=== PATIENT | male | born 1950 | race Caucasian/White ===

== ENCOUNTER 2018-08-13 08:35 | Inpatient (IN) ==
[2018-08-13] MEDS ORDERED: Sod Chloride 0.9% Inj 1,000 ML IV.SIG ONE (09:07)
[2018-08-13] MEDS ORDERED: HYDROmorphone PF Inj 2 MG/ML Vial IV.PUSH ONE (09:10)
[2018-08-13 09:34] LABS: Activated Partial Thrombo Time 26.8 sec (24.3-30.1); INR 1.1 Ratio; Prothrombin Time 11.3 sec (9.8-11.6)
[2018-08-13 09:40] LABS: Alanine Aminotransferase 19 U/L (12-78)
[2018-08-13 09:42] LABS: Albumin 3.4 g/dL (3.4-5.0); Alkaline Phosphatase 84 U/L (45-117); Anion Gap 6 meq/L (5-15); Aspartate Aminotransferase 21 U/L (15-37); Blood Urea Nitrogen 13 mg/dL (7-18); Calcium 9.4 mg/dL (8.5-10.1); Carbon Dioxide 26.8 meq/L (21.0-32.0); Chloride 97 meq/L (98-107); Glomerular Filtration Rate Greater Than 89 mL/min (>89); Glucose,Random 79 mg/dL (74-106); Lipase 34 U/L (73-393); Magnesium 2.1 mg/dL (1.5-2.5); Potassium 6.3 meq/L (3.5-5.1); Sodium 130 meq/L (136-145); Total Protein 7.6 g/dL (6.4-8.2)
--- NOTE | 2018-08-13 09:48 | ED ---
HPI General Chief complaint: Abdominal Pain Stated complaint: Abd pain/diarrehea Time Seen by Provider: 08/13/18 08:49 Source: patient Mode of arrival: ambulatory Limitations: no limitations History of Present Illness HPI narrative: Is a 67-year-old man who presents to the emergency department complaining of abdominal pain. Patient has a complex medical history. About 10 years ago or so he had a pancreatic stone that was unable to be removed any underwent a lateral pancreaticojejunostomy to bypass the stone. This year he was diagnosed with a lung mass in March, was started on an aggressive round of chemotherapy and reportedly developed cold agglutinins, got sick, was in the ICU , and had a ischemia in his right foot requiring amputation. He was started on Xarelto at that time. It is unclear if this was an occlusive process it was related to the vasopressors. He was switched to Keytruda, and Rituxan, which he gets by IV infusion every 3 weeks. 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 He is followed by Dr. Franco in [facility]. He received his most recent infusion last Sunday, 8 days ago. A few days after he started developing severe abdominal pain and watery diarrhea. No blood in his stool. He went to his oncologist who did some blood tests which were unremarkable. He had persistent symptoms and went to the [facility] where they again did blood work and prescribed him Zofran and Bentyl. Pain is worse with any oral intake. He is a little bit of dark urine recently as well. Otherwise had been feeling generally well with reported good response to chemotherapy. Related Data Home Medications Medication Instructions Recorded Confirmed Zofran ODT 4 mg PO Q8H PRN 08/13/18 08/13/18 dapagliflozin [Farxiga] 10 mg PO DAILY 08/13/18 08/13/18 dicyclomine 20 mg PO QID 08/13/18 08/13/18 dicyclomine 20 mg PO QID 08/13/18 08/13/18 folic acid 1 mg PO DAILY 08/13/18 08/13/18 gabapentin 300 mg PO TID PRN 08/13/18 08/13/18 hydromorphone [Dilaudid] 4 mg PO DIRECTED PRN 08/13/18 08/13/18 insulin detemir U-100 [Levemir 13 unit SUBCUT QPM 08/13/18 08/13/18 U-100 Insulin] iron sucrose [Venofer] IV 08/13/18 omeprazole 40 mg PO DAILY 08/13/18 08/13/18 ondansetron HCl [Zofran] 8 mg PO TID PRN 08/13/18 08/13/18 oxycodone-acetaminophen [Percocet] 1 tab PO Q4H PRN 08/13/18 08/13/18 pembrolizumab [Keytruda] IV 08/13/18 rituximab [Rituxan] 08/13/18 rivaroxaban [Xarelto] 20 mg PO DAILY 08/13/18 08/13/18 Allergies Allergy/AdvReac Type Severity Reaction Status Date / Time levofloxacin [From Levaquin] Allergy Dizziness Verified 08/13/18 08:44 metformin Allergy Confusion Verified 08/13/18 08:44 Review of Systems ROS: all other systems reviewed are negative [facility] Medical History Medical History Diabetes (Acute) Leukemia (Acute) Lung cancer (Acute) Surgical History Surgical History Below knee amputation status (Acute) H/O hernia repair (Acute) H/O knee surgery (Acute) History of pancreatic surgery (Acute) Hx of cholecystectomy (Acute) Social History Social History Substance History: No History of Abuse Smoking Status: Former smoker How Often Do You Have a Drink Containing Alcohol: Never Recent Travel in [facility] within the Last 8 Weeks: No Recent Out of Country Travel within the Last 8 Weeks: No Immunization History Tetanus Immunization: <5 Years Exam Narrative Exam Narrative: GENERAL: Well-appearing 67-year-old man, appears well at this time, nontoxic. SKIN: Focused skin assessment warm/dry. HEAD: Atraumatic. Normocephalic. EYES: Pupils equal and round. No scleral icterus. No injection or drainage. ENT: No nasal bleeding or discharge. Mucous membranes pink and moist. NECK: Trachea midline. No JVD. CARDIOVASCULAR: Regular rate and rhythm. No murmur appreciated. RESPIRATORY: No accessory muscle use. Clear to auscultation. Breath sounds equal bilaterally. GASTROINTESTINAL: Abdomen is flat and soft. Mild lower abdominal tenderness. No rebound or guarding. MUSCULOSKELETAL: No obvious deformities. No clubbing. No cyanosis. No edema. NEUROLOGICAL: Awake and alert. No obvious cranial nerve deficits. Motor grossly within normal limits. Normal speech. PSYCHIATRIC: Appropriate mood and affect; insight and judgment normal. Course Initial Documented Vital Signs Temperature 97.7 F 08/13/18 08:39 Pulse Rate 111 H 08/13/18 08:39 Respiratory Rate 20 08/13/18 08:39 Blood Pressure 104/55 L 08/13/18 08:39 Pulse Oximetry 97 08/13/18 08:39 Last Documented Vital Signs Temperature 97.7 F 08/13/18 08:39 Pulse Rate 80 08/13/18 13:00 Respiratory Rate 20 08/13/18 13:00 Blood Pressure 100/59 L 08/13/18 13:00 Pulse Oximetry 99 08/13/18 13:00 Medical Decision Making MDM Narrative Medical decision making narrative: Medical decision making Is a 67-year-old man with active treatment with Keytruda and Rituxan for lung mass. Straight evolving abdominal pain with watery diarrhea. Pain is severe at times, worse with any oral intake. He had some kind of recent vascular insufficiency result and also his leg. This seems to raise the possibility of mesenteric ischemia which is possible by his clinical history. Possibly his vasculitis or thrombophilia. He is on Xarelto but has not been able to take it for a couple days because of his vomiting. He looks overall well. Will check CTA, labs, fluids, reassess. FINAL: Etiology unclear. CTA negative. White count elevated with marked bandemia. This could be related to underlying malignancy. Concern also for infection or colitis. Will check C. difficile, given persistent symptoms, weight loss, dehydration, will recommend observation. I spoke with Dr. Felix, will observe patient. Medical Screen Exam Complete: Yes Emergency Medical Condition: Yes Lab Data Result diagrams: 08/13/18 09:11 08/13/18 09:11 Lab Results 08/13/18 08/13/18 08/13/18 Range/Units 09:11 09:11 09:11 WBC 16.2 H (4.0-11.0) th/mm3 RBC 3.65 L (4.50-5.90) mil/mm3 Hgb 13.0 (13.0-17.0) gm/dL Hct 36.8 L (39.0-51.0) % MCV 100.8 H (80.0-100.0) fL MCH 35.7 H (27.0-34.0) pg MCHC 35.5 (32.0-36.0) % RDW 13.5 (11.6-17.2) % Plt Count 465 H (150-450) th/mm3 MPV 7.5 (7.0-11.0) fL Prelim Diff (Auto) Slide review pending Neut % (Auto) 73.4 H (16.0-70.0) % Lymph % (Auto) 6.6 L (9.0-44.0) % [place] % (Auto) 19.5 H (0.0-8.0) % Eos % (Auto) 0.3 (0.0-4.0) % Baso % (Auto) 0.2 (0.0-2.0) % Neut # (Auto) 11.9 H (1.8-7.7) th/mm3 Lymph # (Auto) 1.1 (1.0-4.8) th/mm3 [place] # (Auto) 3.2 H (0.0-0.9) th/mm3 Eos # (Auto) 0.0 (0.0-0.4) th/mm3 Baso # (Auto) 0.0 (0.0-0.2) th/mm3 WBC Differential Manual diff final Seg Neuts % (Manual) 43 (16-70) % Band Neuts % (Manual) 35 H (0-6) % Lymphocytes % (Manual) 8 L (9-44) % Monocytes % (Manual) 14 H (0-8) % Abs Neuts (Manual) 12.6 H (1.8-7.7) th/mm3 Differential Comment . Toxic Granulation 2+ H (None) Platelet Estimate High H (Normal) Platelet Morphology Normal (Normal) Hematology Comments PT 11.3 (9.8-11.6) sec INR 1.1 Ratio APTT 26.8 (24.3-30.1) sec Sodium (136-145) meq/L Potassium (3.5-5.1) meq/L Chloride (98-107) meq/L Carbon Dioxide (21.0-32.0) meq/L Anion Gap (5-15) meq/L BUN (7-18) mg/dL Creatinine (0.60-1.30) mg/dL Estimated GFR (>89) mL/min Random Glucose (74-106) mg/dL Lactic Acid 1.3 (0.4-2.0) mmol/L Calcium (8.5-10.1) mg/dL Magnesium (1.5-2.5) mg/dL Total Bilirubin (0.2-1.0) mg/dL AST (15-37) U/L ALT (12-78) U/L Alkaline Phosphatase (45-117) U/L Total Protein (6.4-8.2) g/dL Albumin (3.4-5.0) g/dL Lipase (73-393) U/L Urine Color (Yellw/Straw) Urine Clarity (Clear) Urine pH (5.0-8.5) Ur Specific [place] (1.002-1.035) Urine Protein (Neg-Trace) mg/dL Urine Glucose (UA) (Negative) mg/dL Urine Ketones (Negative) mg/dL Urine Occult Blood (Negative) Urine Nitrate (Negative) Urine Bilirubin (Negative) Urine Urobilinogen (Less than 2) mg/dL Ur Leukocyte Esterase (Negative) Urine RBC (0-3) /hpf Urine WBC (0-5) /hpf Urine Mucus (Occasional) /lpf Micro UA Comment Ur Microscopic Review Urine Culture Comments 08/13/18 08/13/18 Range/Units 09:11 09:11 WBC (4.0-11.0) th/mm3 RBC (4.50-5.90) mil/mm3 Hgb (13.0-17.0) gm/dL Hct (39.0-51.0) % MCV (80.0-100.0) fL MCH (27.0-34.0) pg MCHC (32.0-36.0) % RDW (11.6-17.2) % Plt Count (150-450) th/mm3 MPV (7.0-11.0) fL Prelim Diff (Auto) Neut % (Auto) (16.0-70.0) % Lymph % (Auto) (9.0-44.0) % [place] % (Auto) (0.0-8.0) % Eos % (Auto) (0.0-4.0) % Baso % (Auto) (0.0-2.0) % Neut # (Auto) (1.8-7.7) th/mm3 Lymph # (Auto) (1.0-4.8) th/mm3 [place] # (Auto) (0.0-0.9) th/mm3 Eos # (Auto) (0.0-0.4) th/mm3 Baso # (Auto) (0.0-0.2) th/mm3 WBC Differential Seg Neuts % (Manual) (16-70) % Band Neuts % (Manual) (0-6) % Lymphocytes % (Manual) (9-44) % Monocytes % (Manual) (0-8) % Abs Neuts (Manual) (1.8-7.7) th/mm3 Differential Comment Toxic Granulation (None) Platelet Estimate (Normal) Platelet Morphology (Normal) Hematology Comments PT (9.8-11.6) sec INR Ratio APTT (24.3-30.1) sec Sodium 130 L (136-145) meq/L Potassium 6.3 H (3.5-5.1) meq/L Chloride 97 L (98-107) meq/L Carbon Dioxide 26.8 (21.0-32.0) meq/L Anion Gap 6 (5-15) meq/L BUN 13 (7-18) mg/dL Creatinine 0.83 (0.60-1.30) mg/dL Estimated GFR Greater than 89 (>89) mL/min Random Glucose 79 (74-106) mg/dL Lactic Acid (0.4-2.0) mmol/L Calcium 9.4 (8.5-10.1) mg/dL Magnesium 2.1 (1.5-2.5) mg/dL Total Bilirubin 0.9 (0.2-1.0) mg/dL AST 21 (15-37) U/L ALT 19 (12-78) U/L Alkaline Phosphatase 84 (45-117) U/L Total Protein 7.6 (6.4-8.2) g/dL Albumin 3.4 (3.4-5.0) g/dL Lipase 34 L (73-393) U/L Urine Color Yellow (Yellw/Straw) Urine Clarity Clear (Clear) Urine pH 6.0 (5.0-8.5) Ur Specific [place] 1.015 (1.002-1.035) Urine Protein 30 H (Neg-Trace) mg/dL Urine Glucose (UA) Negative (Negative) mg/dL Urine Ketones 20 (Negative) mg/dL Urine Occult Blood Negative (Negative) Urine Nitrate Negative (Negative) Urine Bilirubin Negative (Negative) Urine Urobilinogen Less than 2 (Less than 2) mg/dL Ur Leukocyte Esterase Negative (Negative) Urine RBC Less than 1 (0-3) /hpf Urine WBC Less than 1 (0-5) /hpf Urine Mucus Few H (Occasional) /lpf Micro UA Comment Culture not ind Ur Microscopic Review Not Reportable Urine Culture Comments Culture not ind Imaging Data Radiologist's impression: Abdomen/Pelvis CTA 08/13/18 09:09 CONCLUSION: 1. CT angiogram demonstrates the mesenteric and pelvic vasculature to be widely patent with only minimal atherosclerotic disease. 2. Calcifications throughout the pancreas suggesting previous episodes of pancreatitis. No inflammatory changes are seen. 3. 1.4 cm right adrenal nodule. Please see above discussion.. Discharge Plan Discharge Disposition Patient Disposition: 30 Still Patient Physicians Team ED Provider: Andre Orozco Primary Care Provider: Ravi Enriquez Attending Provider: Dane Felix Discharge Interventions Interventions: Vital Signs Last Done: 08/13/18 13:00 Status ED Status: Admitted Observation Patient
[2018-08-13 10:02] LABS: Bilirubin,Urine Negative (Negative); Clarity,Urine Clear (Clear); Color,Urine Yellow (Yellw/Straw); Glucose,Urine (UA) Negative (Negative); Leukocyte Esterase,Urine Negative (Negative); Mucus,Urine Few /lpf (Occasional); Nitrite,Urine Negative (Negative); Specific Gravity,Urine 1.015 (1.002-1.035)
[2018-08-13 10:09] LABS: Baso % (Auto) 0.2 % (0.0-2.0); Eos % (Auto) 0.3 % (0.0-4.0); Hematocrit 36.8 % (39.0-51.0); Lymph # (Auto) 1.1 th/mm3 (1.0-4.8); Lymph % (Auto) 6.6 % (9.0-44.0); Mean Corpuscular HGB Conc 35.5 % (32.0-36.0); Mean Corpuscular Hemoglobin 35.7 pg (27.0-34.0); Mean Corpuscular Volume 100.8 fL (80.0-100.0); Mean Platelet Volume 7.5 fL (7.0-11.0); Mono # (Auto) 3.2 th/mm3 (0.0-0.9); Mono % (Auto) 19.5 % (0.0-8.0); Neut # (Auto) 11.9 th/mm3 (1.8-7.7); Neut % (Auto) 73.4 % (16.0-70.0); Platelet Count 465 th/mm3 (150-450); Red Blood Count 3.65 mil/mm3 (4.50-5.90); Red Cell Distribution Width 13.5 % (11.6-17.2); White Blood Count 16.2 th/mm3 (4.0-11.0)
[2018-08-13 10:55] LABS: Lymphocytes 8 % (9-44); Monocytes 14 % (0-8); Platelet Morphology Normal (Normal); Toxic Granulation 2+
--- NOTE | 2018-08-13 12:25 | CT ---
EXAM DATE: 08/13/2018 11:48 AM EDT AGE/SEX: 67 years / Male INDICATIONS: Mid abdominal pain for 6 days CLINICAL DATA: This is the patient's initial encounter. Patient reports that signs and symptoms have been present for 4 - 6 days and indicates a pain score of 8/10. MEDICAL/SURGICAL HISTORY: Diabetes. Leukemia. Carcinoma, lung. Cholecystectomy. RADIATION DOSE: 6.34 CTDI (mGy) COMPARISON: No prior exams available for comparison. TECHNIQUE: Volumetric scanning was performed using a multi-row detector CT scanner during bolus infu jhon of 100 ml Omnipaque 350 (iohexol) nonionic water-soluble contrast as a single exam dose. . The data was post processed with a variety of visualization algorithms including full volume maximum int ensity projection, multi-planar sliding thin slab reformation, curved planar reformation, and surface rendering techniques. Using automated exposure control and adjustment of the mA and/or kV according to patient size, radiation dose was kept as low as reasonably achievable to obtain optimal diagnosti c quality images. DICOM format image data is available electronically for review and comparison. FINDINGS: Abdominal aorta: The celiac and SMA origins are widely patent. There is a single renal artery on the left. The left renal is widely patent. There is a main and an accessory on the right. Both are widely patent. The infrarenal aorta is normal in caliber. The [place]ANO is patent. Pelvis: The common iliac, internal iliac and external iliac circulation is widely patent bilaterally. CT source data: The limited portion of lung base visualized demonstrates COPD changes but is otherwis e clear. Examination of the liver demonstrates some gas within the intrahepatic biliary tree suggesti ng previous sphincterotomy. The spleen and kidneys are normal in appearance. Note is made of calcification throughout the pancreas suggesting previous pancreatitis. Note is made of a 1.4 cm nodule within the right adrenal gland. This demonstrates a average density o f 68 Hounsfield units as such is indeterminate. If previous imaging can be made available for compari son assessment for stability could be made. Alternatively if no prior is available MRI imaging for fu rther characterization could be performed. No free air free fluid is identified. The visualized loops of small large bowel are unremarkable. The re is no free fluid within the pelvis. No iliac or inguinal adenopathy is seen. There are degenerativ e changes within the spine. CONCLUSION: 1. CT angiogram demonstrates the mesenteric and pelvic vasculature to be widely patent with only min imal atherosclerotic disease. 2. Calcifications throughout the pancreas suggesting previous episodes of pancreatitis. No inflammat ory changes are seen. 3. 1.4 cm right adrenal nodule. Please see above discussion.. Electronically signed by: Luis Alberto Oro MD 08/13/2018 12:23 PM EDT
[2018-08-13] MEDS ORDERED: Acetaminophen 325 MG Tablet PO PRN (14:20)
[2018-08-13] MEDS ORDERED: Dextrose 50% in Water 50 ML Vial IV.PUSH PRN (14:31)
[2018-08-13] MEDS: Sod Chloride 0.9% Inj 1,000 ML IV.CONT SCH (14:38)
--- NOTE | 2018-08-13 15:09 | P.HPIM ---
History of Present Illness Primary Care Physician: Ravi Enriquez MD Chief Complaint: Abd discomfort, diarrhea and vomiting History of Present Illness: This is a 67-year-old male patient with a past medical history which includes CLL, non-small cell adenocarcinoma of the lung, diabetes mellitus type 2, B12 deficiency, chronic pancreatitis, hypertension no longer on antihypertensives and bilateral PE. Patient was admitted to [facility] 03/18/18 transferred to [facility] discharge 2017 after drainage of pericardial effusion, cardiac tamponade and bilateral pleural effusion as well as bilateral PE at that time patient was diagnosed with non-small cell lung cancer and given 1 cycle of carboplatin and Taxol. Patient was then admitted to [facility] 03/28/18 discharge 2017. 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 . Patient reports he has been doing well was under the care of oncologist Dr. Escalante is being treated with Ketruda and Rituxan Q 3weeks. Until this past 08/07/2018 when patient began to have abdominal cramping/"acid sensation," followed by the need to have diarrhea or vomit. Patient denies bright red blood or coffee-ground emesis. Patient also denies bright red blood or black tarry stools. Patient reports the sensations are worsened by food and he is having liquid bowel movements as often as 2 times per hour. Patient also reports that his symptoms are getting a little better but if not yet gone away therefore he proceeded to the emergency department for further evaluation and treatment. Patient denies fevers but does report hot and cold sensations with occasional diaphoresis. Patient denies chest pain palpitations shortness of breath at this time. PMH: CLL, non-small cell adenocarcinoma of the lung, diabetes mellitus type 2, B12 deficiency, chronic pancreatitis, hypertension no longer on antihypertensives, Bilateral PE, R BKA PSxH: Hernia repair 2004 Gallbladder removed 2009 Pancreaticojejunostomy Thoracentesis March 2018 Pericardial drain March 2018 Right BKA April 15, 2018 Family medical history: Reviewed and noncontributory Social history: lives at home with his retired EtOH use approximately 2 beers per day Denies tobacco use at this time Diagnosis (1) Diarrhea: (2) Abdominal pain: Medications and Allergies Allergies Allergy/AdvReac Type Severity Reaction Status Date / Time levofloxacin [From Levaquin] Allergy Dizziness Verified 08/13/18 08:44 metformin Allergy Confusion Verified 08/13/18 08:44 Home Medications Medication Instructions Recorded Confirmed Type Zofran ODT 4 mg PO Q8H PRN 08/13/18 08/13/18 History dapagliflozin [Farxiga] 10 mg PO DAILY 08/13/18 08/13/18 History dicyclomine 20 mg PO QID 08/13/18 08/13/18 History dicyclomine 20 mg PO QID 08/13/18 08/13/18 History folic acid 1 mg PO DAILY 08/13/18 08/13/18 History gabapentin 300 mg PO TID PRN 08/13/18 08/13/18 History hydromorphone [Dilaudid] 4 mg PO DIRECTED PRN 08/13/18 08/13/18 History insulin detemir U-100 [Levemir 13 unit SUBCUT QPM 08/13/18 08/13/18 History U-100 Insulin] iron sucrose [Venofer] IV 08/13/18 History omeprazole 40 mg PO DAILY 08/13/18 08/13/18 History ondansetron HCl [Zofran] 8 mg PO TID PRN 08/13/18 08/13/18 History oxycodone-acetaminophen [Percocet] 1 tab PO Q4H PRN 08/13/18 08/13/18 History pembrolizumab [Keytruda] IV 08/13/18 History rituximab [Rituxan] 08/13/18 History rivaroxaban [Xarelto] 20 mg PO DAILY 08/13/18 08/13/18 History Active Medications: Active Medications Acetaminophen (Tylenol) 650 mg PO Q4H PRN PRN Reason: Temp > 100.4 Dextrose (D50w Vial) 50 ml IV.PUSH UNSCH PRN PRN Reason: PER HYPOGLYCEMIA PROTOCOL Glucagon (Glucagon Inj) 1 mg OTHER PRN PRN PRN Reason: for Hypoglycemia Protocol Sodium Chloride (Ns Inj) 1,000 mls @ 100 mls/hr IV.CONT .Q10H ROMERO Last Admin: 08/13/18 14:38 Dose: 100 mls/hr Insulin Aspart (Novolog Insulin Correctional Sugar Inj) 0 unit SQ ACHS ROMERO; Protocol Ondansetron HCl (Zofran Inj) 4 mg IV.PUSH Q6H PRN PRN Reason: NAUSEA OR VOMITING Sodium Chloride (Ns Flush) 2 ml IV.FLUSH PRN PRN PRN Reason: FLUSH AFTER USING IV ACCESS Physical Exam Vital signs: Last Vital Signs Temp 97.7 F 08/13/18 08:39 Pulse 80 08/13/18 13:00 Resp 20 08/13/18 13:00 BP 100/59 L 08/13/18 13:00 Pulse Ox 99 08/13/18 13:00 Narrative: GENERAL: This is a well-nourished, well-developed patient, in no apparent distress. CARDIOVASCULAR: Regular rate and rhythm RESPIRATORY: Clear to auscultation. Breath sounds equal bilaterally. GASTROINTESTINAL: Abdomen soft, non-tender, nondistended. Normal active bowel sounds MUSCULOSKELETAL: R BKA NEURO: Alert & Oriented x4 to person, place, time, situation. Moves all ext x4 Results Labs CBC & Chem 7: 08/13/18 09:11 08/13/18 09:11 Caprini VTE Risk Assessment Caprini VTE Risk Assessment: Moderate/High Risk (score >= 2) Caprini Risk Assessment Model: Point Value = 1 Point Value = 2 Point Value = 3 Point Value = 5 Age 41-60 Minor surgery BMI > 25 kg/m2 Swollen legs Varicose veins or History of unexplained or recurrent spontaneous Oral contraceptives or hormone replacement Sepsis (< 1 month) Serious lung disease, including pneumonia (< 1 month) Abnormal pulmonary function Acute myocardial infarction Congestive heart failure (< 1 month) History of inflammatory bowel disease Medical patient at bed rest Age 61-74 Arthroscopic surgery Major open surgery (> 45 min) Laparoscopic surgery (> 45 min) Malignancy Confined to bed (> 72 hours) Immobilizing plaster cast Central venous access Age >= 75 History of VTE Family history of VTE Factor V Leiden Prothrombin [id number] Lupus anticoagulant Anticardiolipin antibodies Elevated serum homocysteine Heparin-induced thrombocytopenia Other congenital or acquired thrombophilia Stroke (< 1 month) Elective arthroplasty Hip, pelvis, or leg fracture Acute spinal cord injury (< 1 month) Prophylaxis Regimen: Total Risk Factor Score Risk Level Prophylaxis Regimen 0-1 Low Early ambulation 2 Moderate Order ONE of the following: *Sequential Compression Device (SCD) *Heparin 5000 units SQ BID 3-4 Higher Order ONE of the following medications: *Heparin 5000 units SQ TID *Enoxaparin/Lovenox 40 mg SQ daily (WT < 150 kg, CrCl > 30 mL/min) *Enoxaparin/Lovenox 30 mg SQ daily (WT < 150 kg, CrCl > 10-29 mL/min) *Enoxaparin/Lovenox 30 mg SQ BID (WT < 150 kg, CrCl > 30 mL/min) AND/OR *Sequential Compression Device (SCD) 5 or more Highest Order ONE of the following medications: *Heparin 5000 units SQ TID (Preferred with Epidurals) *Enoxaparin/Lovenox 40 mg SQ daily (WT < 150 kg, CrCl > 30 mL/min) *Enoxaparin/Lovenox 30 mg SQ daily (WT < 150 kg, CrCl > 10-29 mL/min) *Enoxaparin/Lovenox 30 mg SQ BID (WT < 150 kg, CrCl > 30 mL/min) AND *Sequential Compression Device (SCD) Assessment and Plan Assessment (1) Diarrhea: Code(s): R19.7 - Diarrhea, unspecified Status: Acute (2) Abdominal pain: Code(s): R10.9 - Unspecified abdominal pain Status: Acute Plan This is a 67-year-old male patient with a past medical history which includes CLL, non-small cell adenocarcinoma of the lung, diabetes mellitus type 2, B12 deficiency, chronic pancreatitis, hypertension no longer on antihypertensives and bilateral PE. Patient was admitted to [facility] 03/18/18 transferred to [facility] discharge 03/24/2018 after drainage of pericardial effusion, cardiac tamponade and bilateral pleural effusion as well as bilateral PE at that time patient was diagnosed with non-small cell lung cancer and given 1 cycle of carboplatin and Taxol. Patient was then admitted to [facility] 03/28/18 discharge 04/19/2018. 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 . Patient reports he has been doing well was under the care of oncologist Dr. Escalante is being treated with Ketruda and Rituxan Q 3weeks. Until this past 08/07/2018 when patient began to have abdominal cramping/"acid sensation," followed by the need to have diarrhea or vomit. Patient reports the sensations are worsened by food and he is having liquid bowel movements as often as 2 times per hour. Patient also reports that his symptoms are getting a little better but if not yet gone away therefore he proceeded to the emergency department for further evaluation and treatment. Abd pain N/V/D Normal saline at 100 cc/h Stool studies requested and pending Check stool for C. difficile CT abdomen pelvis reviewed and reveals Abdomen/Pelvis CTA 08/13/18 09:[address] angiogram demonstrates the mesenteric and pelvic vasculature to be widely patent with only minimal atherosclerotic disease. 2. Calcifications throughout the pancreas suggesting previous episodes of pancreatitis. No inflammatory changes are seen. 3. 1.4 cm right adrenal nodule. Please see above discussion. Clear liquid diet Zofran as needed Supportive care Recheck CBC BMP in a.m. CLL Non-small cell adenocarcinoma of the lung Follows with Dr. Escalante outpatient Patient at home takes Dilaudid 4 mg p.o. daily Dilaudid 0.5 mg IV Q4H while patient unable to take p.o. Diabetes mellitus type 2 Hold home Levemir 13 units SQ daily and Farxiga 10 mg PO daily Accu-Cheks AC at bedtime with sliding scale insulin coverage Hypertension no longer on antihypertensives Monitor Bilateral pulmonary emboli March 2018 Hold patient's home Xarelto, may need GI procedure DVT prophylaxis with L SCD Hold patient's home Xarelto may need GI procedure
[2018-08-13] MEDS ORDERED: Gabapentin 300 MG Capsule PO PRN (16:00)
[2018-08-13] MEDS: HYDROmorphone PF Inj 1 MG/ML Ampul IV.PUSH PRN ×2 (16:15→21:16)
[2018-08-13] MEDS: Insulin NovoLOG Aspart Correctional Sugar Inj SQ SCH ×2 (17:40→21:04)
[2018-08-14] MEDS: Sod Chloride 0.9% Inj 1,000 ML IV.CONT SCH ×3 (04:00→21:25)
[2018-08-14] MEDS: HYDROmorphone PF Inj 1 MG/ML Ampul IV.PUSH PRN (05:06)
[2018-08-14] MEDS: Insulin NovoLOG Aspart Correctional Sugar Inj SQ SCH ×4 (08:06→21:26)
[2018-08-14] MEDS: Folic Acid 1 MG Tablet PO SCH (08:12)
[2018-08-14 08:22] LABS: Baso % (Auto) 0.2 % (0.0-2.0); Eos % (Auto) 0.6 % (0.0-4.0); Hematocrit 42.2 % (39.0-51.0); Hemoglobin 14.3 gm/dL (13.0-17.0); Lymph # (Auto) 0.5 th/mm3 (1.0-4.8); Lymph % (Auto) 6.8 % (9.0-44.0); Mean Corpuscular HGB Conc 33.9 % (32.0-36.0); Mean Corpuscular Hemoglobin 32.4 pg (27.0-34.0); Mean Corpuscular Volume 95.6 fL (80.0-100.0); Mean Platelet Volume 6.9 fL (7.0-11.0); Mono # (Auto) 1.1 th/mm3 (0.0-0.9); Mono % (Auto) 15.1 % (0.0-8.0); Neut # (Auto) 5.6 th/mm3 (1.8-7.7); Neut % (Auto) 77.3 % (16.0-70.0); Platelet Count 297 th/mm3 (150-450); Red Blood Count 4.42 mil/mm3 (4.50-5.90); Red Cell Distribution Width 13.5 % (11.6-17.2); White Blood Count 7.3 th/mm3 (4.0-11.0)
[2018-08-14 08:22] LABS: Alanine Aminotransferase 16 U/L (12-78); Albumin 2.6 g/dL (3.4-5.0); Alkaline Phosphatase 63 U/L (45-117); Anion Gap 6 meq/L (5-15); Aspartate Aminotransferase 25 U/L (15-37); Blood Urea Nitrogen 7 mg/dL (7-18); Calcium 8.4 mg/dL (8.5-10.1); Carbon Dioxide 26.1 meq/L (21.0-32.0); Chloride 104 meq/L (98-107); Glomerular Filtration Rate Greater Than 89 mL/min (>89); Glucose,Random 92 mg/dL (74-106); Sodium 136 meq/L (136-145); Total Protein 5.9 g/dL (6.4-8.2)
[2018-08-14 08:31] LABS: Potassium 5.6 meq/L (3.5-5.1)
--- NOTE | 2018-08-14 10:37 | P.CONGI ---
History of Present Illness Consult date: 08/14/18 Consult reason: Nausea vomiting diarrhea with abdominal pain after meals Chief complaint: Abdominal pain, leukocytosis, eval c-diff History of Present Illness: This is a 67-year-old male who presented to the hospital on 08/13/2018 with symptoms of nausea and vomiting, diarrhea and mid abdominal pain radiating into the right upper quadrant. . Onset of symptoms is been approximately 7 days with diarrhea stools as much as twice an hour for the first 2 days but now symptoms have relieved to approximately 4 stools a day consistency is brown, watery but no obvious bleeding. Patient also noted some increase in his dyspepsia symptoms during the initial state of nausea vomiting , aggregating factor worse after eating, no relieving factors no relief from Tums. Patient has a history of taking Xarelto but has not had any medication since admission. Patient notes significant history of chronic pancreatitis and previous EtOH with failed ERCP requiring surgical bypass of the common bile duct in 1999. Patient currently denies any alcohol use and is currently being treated for CLL , non-small cell adenocarcinoma of the lung diagnosed in March 2018. Patient did see his oncologist approximately a week ago. Patient does note decreased appetite and weight loss approximately 10 pounds over the past week. Labs reviewed showing hemoglobin 14.3, initial leukocytosis with WBC count 16.2 now 7.3, PT/INR 1.1, lipase level 34, and bilirubin LFTs are normal. Abdomen pelvis CTA showed no inflammatory pancreas, vessels are patent. Gastroenterology was consulted to assist with patient's GI symptoms and plan of care. <Nataliia Llamas - Last Filed: 08/14/18 10:51> Review of Systems All other systems reviewed negative except as stated in HPI <Nataliia Llamas - Last Filed: 08/14/18 10:51> PMFSH - History History Provided By: Patient - Medical History Medical History: Medical History (Last Reviewed 08/14/18 @ 07:59 by Martha Beard) Diabetes History of chemotherapy Leukemia Lung cancer - Surgical History Surgical History: Surgical History (Last Reviewed 08/14/18 @ 07:59 by Martha Beard) Below knee amputation status H/O hernia repair H/O knee surgery History of pancreatic surgery Hx of cholecystectomy - Tobacco History Smoking Status: Former smoker - Alcohol History How Often Do You Have a Drink Containing Alcohol: Never - Substance Use History Substance History: No History of Abuse - Travel History Recent Travel in the [place] Within the Last 8 Weeks: No Recent Travel Out of the Country Within the Last 8 Weeks: No - Immunization History Tetanus Immunization: <5 Years <Nataliia Llamas - Last Filed: 08/14/18 10:51> - Medical History Medical History: Medical History (Last Reviewed 08/14/18 @ 07:59 by Martha Beard) Diabetes History of chemotherapy Leukemia Lung cancer - Surgical History Surgical History: Surgical History (Last Reviewed 08/14/18 @ 07:59 by Martha Beard) Below knee amputation status H/O hernia repair H/O knee surgery History of pancreatic surgery Hx of cholecystectomy <Akhil Callaway - Last Filed: 08/14/18 15:27> Medications and Allergies Active Medications: Active Medications Acetaminophen (Tylenol) 650 mg PO Q4H PRN PRN Reason: Temp > 100.4 Dextrose (D50w Vial) 50 ml IV.PUSH UNSCH PRN PRN Reason: PER HYPOGLYCEMIA PROTOCOL Folic Acid (Folic Acid) 1 mg PO DAILY [facility] Last Admin: 08/14/18 08:12 Dose: 1 mg Gabapentin (Neurontin) 300 mg PO TID PRN PRN Reason: nerve pain Glucagon (Glucagon Inj) 1 mg OTHER PRN PRN PRN Reason: for Hypoglycemia Protocol Hydromorphone HCl (Dilaudid Pf Inj) 0.5 mg IV.PUSH Q4H PRN PRN Reason: pain 1-10. Last Admin: 08/14/18 05:06 Dose: 0.5 mg Sodium Chloride (Ns Inj) 1,000 mls @ 100 mls/hr IV.CONT .Q10H [facility] Last Admin: 08/14/18 04:00 Dose: 100 mls/hr Insulin Aspart (Novolog Insulin Correctional Sugar Inj) 0 unit SQ ACHS [facility]; Protocol Last Admin: 08/14/18 08:06 Dose: Not Given Ondansetron HCl (Zofran Inj) 4 mg IV.PUSH Q6H PRN PRN Reason: NAUSEA OR VOMITING Sodium Chloride (Ns Flush) 2 ml IV.FLUSH PRN PRN PRN Reason: FLUSH AFTER USING IV ACCESS <Nataliia Llamas - Last Filed: 08/14/18 10:51> Active Medications: Active Medications Acetaminophen (Tylenol) 650 mg PO Q4H PRN PRN Reason: Temp > 100.4 Dextrose (D50w Vial) 50 ml IV.PUSH UNSCH PRN PRN Reason: PER HYPOGLYCEMIA PROTOCOL Folic Acid (Folic Acid) 1 mg PO DAILY [facility] Last Admin: 08/14/18 08:12 Dose: 1 mg Gabapentin (Neurontin) 300 mg PO TID PRN PRN Reason: nerve pain Glucagon (Glucagon Inj) 1 mg OTHER PRN PRN PRN Reason: for Hypoglycemia Protocol Sodium Chloride (Ns Inj) 1,000 mls @ 100 mls/hr IV.CONT .Q10H [facility] Last Admin: 08/14/18 15:25 Dose: 100 mls/hr Insulin Aspart (Novolog Insulin Correctional Sugar Inj) 0 unit SQ ACHS [facility]; Protocol Last Admin: 08/14/18 11:39 Dose: 4 unit Morphine Sulfate (Morphine Inj) 2 mg IV.PUSH Q4H PRN PRN Reason: PAIN SCALE 1 TO 10 Last Admin: 08/14/18 11:39 Dose: 2 mg Ondansetron HCl (Zofran Inj) 4 mg IV.PUSH Q6H PRN PRN Reason: NAUSEA OR VOMITING Last Admin: 08/14/18 11:48 Dose: 4 mg Pantoprazole Sodium (Protonix Inj) 40 mg IV.CONT Q24H [facility] Last Admin: 08/14/18 15:25 Dose: 40 mg Sodium Chloride (Ns Flush) 2 ml IV.FLUSH BID [facility] Sodium Chloride (Ns Flush) 2 ml IV.FLUSH PRN PRN PRN Reason: FLUSH AFTER USING IV ACCESS <Akhil Callaway - Last Filed: 08/14/18 15:27> Allergies Allergy/AdvReac Type Severity Reaction Status Date / Time levofloxacin [From Levaquin] Allergy Dizziness Verified 08/13/18 08:44 metformin Allergy Confusion Verified 08/13/18 08:44 Home Medications Medication Instructions Recorded Confirmed Type Zofran ODT 4 mg PO Q8H PRN 08/13/18 08/13/18 History dapagliflozin [Farxiga] 10 mg PO DAILY 08/13/18 08/13/18 History dicyclomine 20 mg PO QID 08/13/18 08/13/18 History dicyclomine 20 mg PO QID 08/13/18 08/13/18 History folic acid 1 mg PO DAILY 08/13/18 08/13/18 History gabapentin 300 mg PO TID PRN 08/13/18 08/13/18 History hydromorphone [Dilaudid] 4 mg PO DIRECTED PRN 08/13/18 08/13/18 History insulin detemir U-100 [Levemir 13 unit SUBCUT QPM 08/13/18 08/13/18 History U-100 Insulin] iron sucrose [Venofer] IV 08/13/18 History omeprazole 40 mg PO DAILY 08/13/18 08/13/18 History ondansetron HCl [Zofran] 8 mg PO TID PRN 08/13/18 08/13/18 History oxycodone-acetaminophen [Percocet] 1 tab PO Q4H PRN 08/13/18 08/13/18 History pembrolizumab [Keytruda] IV 08/13/18 History rituximab [Rituxan] 08/13/18 History rivaroxaban [Xarelto] 20 mg PO DAILY 08/13/18 08/13/18 History Exam Vital signs: Vital Signs 08/13/18 13:00 08/13/18 15:52 08/13/18 20:00 Temperature 97.5 F L Pulse Rate 80 89 82 Respiratory Rate 20 18 18 Blood Pressure 100/59 L 117/62 107/61 Pulse Oximetry 99 100 08/14/18 00:00 08/14/18 08:00 Temperature 97.8 F 98.0 F Pulse Rate 76 73 Respiratory Rate 18 17 Blood Pressure 105/55 L 98/51 L Pulse Oximetry 99 97 Intake & Output 08/13/18 08/14/18 08/14/18 18:59 06:59 18:59 Intake Total 1000 / 1000 1600 / 1600 Balance 1000 / 1000 1600 / 1600 Weight 58.967 kg 59.9 kg Intake: IV 1000 / 1000 1000 / 1000 NS Inj 1,000 ML @ 100 mls/hr IV 1000 / 1000 .CONT .Q10H [facility] Rx#:[id number] NS Inj 1,000 ML @ Wide Open IV. 1000 / 1000 SIG BOLUS ONE Rx#:[id number] Oral 600 / 600 Other: # Voids 4 Date of Last Bowel Movement 08/13/18 # Bowel Movements 2 - Constitutional mild distress, cachectic, cooperative - Routine HEENT Exam ENT: Present: mucous membranes dry - Routine Respiratory Exam Present: accessory muscle use (No obvious shortness of breath) - Routine Cardiovascular Exam Present: S1, S2 - Routine Abdominal Exam Present: soft, normoactive bowel sounds, tenderness (Minimal discomfort mid and right upper quadrant, improved) <Nataliia Llamas - Last Filed: 08/14/18 10:51> Vital signs: Vital Signs 08/13/18 15:52 08/13/18 20:00 08/14/18 00:00 Temperature 97.5 F L 97.8 F Pulse Rate 89 82 76 Respiratory Rate 18 18 18 Blood Pressure 117/62 107/61 105/55 L Pulse Oximetry 100 99 08/14/18 08:00 08/14/18 12:00 Temperature 98.0 F 97.9 F Pulse Rate 73 75 Respiratory Rate 17 17 Blood Pressure 98/51 L 100/57 L Pulse Oximetry 97 99 Intake & Output 08/13/18 08/14/18 08/14/18 18:59 06:59 18:59 Intake Total 1000 / 1000 1600 / 1600 1000 / 1000 Balance 1000 / 1000 1600 / 1600 1000 / 1000 Weight 58.967 kg 59.9 kg Intake: IV 1000 / 1000 1000 / 1000 1000 / 1000 NS Inj 1,000 ML @ 100 mls/hr IV 1000 / 1000 1000 / 1000 .CONT .Q10H [facility] Rx#:[id number] NS Inj 1,000 ML @ Wide Open IV. 1000 / 1000 SIG BOLUS ONE Rx#:[id number] Oral 600 / 600 Other: # Voids 4 Date of Last Bowel Movement 08/13/18 # Bowel Movements 2 <Akhil Callaway - Last Filed: 08/14/18 15:27> Results - Labs CBC & Chem 7: 08/14/18 06:14 08/14/18 06:16 Labs: Laboratory Results - last 24 hr 08/13/18 08/13/18 08/13/18 09:11 15:45 17:30 WBC RBC Hgb Hct MCV MCH MCHC RDW Plt Count MPV Neut % (Auto) Lymph % (Auto) [place] % (Auto) Eos % (Auto) Baso % (Auto) Neut # (Auto) Lymph # (Auto) [place] # (Auto) Eos # (Auto) Baso # (Auto) WBC Differential Manual diff final Seg Neuts % (Manual) 43 Band Neuts % (Manual) 35 H Lymphocytes % (Manual) 8 L Monocytes % (Manual) 14 H Abs Neuts (Manual) 12.6 H Differential Comment Toxic Granulation 2+ H Platelet Estimate High H Platelet Morphology Normal Hematology Comments Sodium Potassium Chloride Carbon Dioxide Anion Gap BUN Creatinine Estimated GFR POC Glucose 82 Random Glucose Calcium Total Bilirubin AST ALT Alkaline Phosphatase Total Protein Albumin Stl C.difficile DNA Amp Negative St C. diff Tox Epid 027 Negative 08/13/18 08/14/18 08/14/18 21:03 06:14 06:16 WBC 7.3 D RBC 4.42 L Hgb 14.3 Hct 42.2 MCV 95.6 D MCH 32.4 MCHC 33.9 RDW 13.5 Plt Count 297 D MPV 6.9 L Neut % (Auto) 77.3 H Lymph % (Auto) 6.8 L [place] % (Auto) 15.1 H Eos % (Auto) 0.6 Baso % (Auto) 0.2 Neut # (Auto) 5.6 Lymph # (Auto) 0.5 L [place] # (Auto) 1.1 H Eos # (Auto) 0.0 Baso # (Auto) 0.0 WBC Differential . Seg Neuts % (Manual) Band Neuts % (Manual) Lymphocytes % (Manual) Monocytes % (Manual) Abs Neuts (Manual) Differential Comment Auto diff final Toxic Granulation Platelet Estimate Platelet Morphology Hematology Comments Sodium 136 Potassium 5.6 H Chloride 104 Carbon Dioxide 26.1 Anion Gap 6 BUN 7 Creatinine 0.60 Estimated GFR Greater than 89 POC Glucose 139 H Random Glucose 92 Calcium 8.4 L D Total Bilirubin 0.5 AST 25 ALT 16 Alkaline Phosphatase 63 Total Protein 5.9 L D Albumin 2.6 L D Stl C.difficile DNA Amp St C. diff Tox Epid 027 08/14/18 08:01 WBC RBC Hgb Hct MCV MCH MCHC RDW Plt Count MPV Neut % (Auto) Lymph % (Auto) [place] % (Auto) Eos % (Auto) Baso % (Auto) Neut # (Auto) Lymph # (Auto) [place] # (Auto) Eos # (Auto) Baso # (Auto) WBC Differential Seg Neuts % (Manual) Band Neuts % (Manual) Lymphocytes % (Manual) Monocytes % (Manual) Abs Neuts (Manual) Differential Comment Toxic Granulation Platelet Estimate Platelet Morphology Hematology Comments Sodium Potassium Chloride Carbon Dioxide Anion Gap BUN Creatinine Estimated GFR POC Glucose 135 H Random Glucose Calcium Total Bilirubin AST ALT Alkaline Phosphatase Total Protein Albumin Stl C.difficile DNA Amp St C. diff Tox Epid 027 - Imaging Impressions Abdomen/Pelvis CTA 08/13/18 09:09 CONCLUSION: 1. CT angiogram demonstrates the mesenteric and pelvic vasculature to be widely patent with only minimal atherosclerotic disease. 2. Calcifications throughout the pancreas suggesting previous episodes of pancreatitis. No inflammatory changes are seen. 3. 1.4 cm right adrenal nodule. Please see above discussion.. <Nataliia Llamas - Last Filed: 08/14/18 10:51> - Labs CBC & Chem 7: 08/14/18 06:14 08/14/18 06:16 Labs: Laboratory Results - last 24 hr 08/13/18 08/13/18 08/13/18 15:45 17:30 21:03 WBC RBC Hgb Hct MCV MCH MCHC RDW Plt Count MPV Neut % (Auto) Lymph % (Auto) [place] % (Auto) Eos % (Auto) Baso % (Auto) Neut # (Auto) Lymph # (Auto) [place] # (Auto) Eos # (Auto) Baso # (Auto) WBC Differential Differential Comment Hematology Comments Sodium Potassium Chloride Carbon Dioxide Anion Gap BUN Creatinine Estimated GFR POC Glucose 82 139 H Random Glucose Calcium Total Bilirubin AST ALT Alkaline Phosphatase Total Protein Albumin Stl C.difficile DNA Amp Negative St C. diff Tox Epid 027 Negative 08/14/18 08/14/18 08/14/18 06:14 06:16 08:01 WBC 7.3 D RBC 4.42 L Hgb 14.3 Hct 42.2 MCV 95.6 D MCH 32.4 MCHC 33.9 RDW 13.5 Plt Count 297 D MPV 6.9 L Neut % (Auto) 77.3 H Lymph % (Auto) 6.8 L [place] % (Auto) 15.1 H Eos % (Auto) 0.6 Baso % (Auto) 0.2 Neut # (Auto) 5.6 Lymph # (Auto) 0.5 L [place] # (Auto) 1.1 H Eos # (Auto) 0.0 Baso # (Auto) 0.0 WBC Differential . Differential Comment Auto diff final Hematology Comments Sodium 136 Potassium 5.6 H Chloride 104 Carbon Dioxide 26.1 Anion Gap 6 BUN 7 Creatinine 0.60 Estimated GFR Greater than 89 POC Glucose 135 H Random Glucose 92 Calcium 8.4 L D Total Bilirubin 0.5 AST 25 ALT 16 Alkaline Phosphatase 63 Total Protein 5.9 L D Albumin 2.6 L D Stl C.difficile DNA Amp St C. diff Tox Epid 027 08/14/18 11:38 WBC RBC Hgb Hct MCV MCH MCHC RDW Plt Count MPV Neut % (Auto) Lymph % (Auto) [place] % (Auto) Eos % (Auto) Baso % (Auto) Neut # (Auto) Lymph # (Auto) [place] # (Auto) Eos # (Auto) Baso # (Auto) WBC Differential Differential Comment Hematology Comments Sodium Potassium Chloride Carbon Dioxide Anion Gap BUN Creatinine Estimated GFR POC Glucose 223 H Random Glucose Calcium Total Bilirubin AST ALT Alkaline Phosphatase Total Protein Albumin Stl C.difficile DNA Amp St C. diff Tox Epid 027 <Akhil Callaway - Last Filed: 08/14/18 15:27> Assessment and Plan - Plan 67-year-old male who presented to the hospital on 08/13/2018 with symptoms of nausea and vomiting, diarrhea and mid abdominal pain radiating into the right upper quadrant. . Onset of symptoms is been approximately 7 days with diarrhea stools as much as twice an hour for the first 2 days but now symptoms have relieved to approximately 4 stools a day consistency is brown, watery but no obvious bleeding. Patient also noted some increase in his dyspepsia symptoms during the initial state of nausea vomiting , aggregating factor worse after eating, no relieving factors no relief from Tums. Patient has a history of taking Xarelto but has not had any medication since admission. Patient notes significant history of chronic pancreatitis and previous EtOH with failed ERCP requiring surgical bypass of the common bile duct in 1999. Patient currently denies any alcohol use and is currently being treated for CLL, non-small cell adenocarcinoma of the lung diagnosed in March 2018. Patient did see his oncologist approximately a week ago. Patient does note decreased appetite and weight loss approximately 10 pounds over the past week. Labs reviewed showing hemoglobin 14.3, initial leukocytosis with WBC count 16.2 now 7.3, PT/INR 1.1, lipase level 34, and bilirubin LFTs are normal. Abdomen pelvis CTA showed no inflammatory pancreas, vessels are patent. Gastroenterology was consulted to assist with patient's GI symptoms and plan of care. Dyspepsia Nausea and vomiting Uncontrolled watery brown diarrhea stools with no obvious bleeding, C. difficile negative EGD colonoscopy approximately 10 years ago in the [place] area, no family history of colon cancer Leukocytosis initially on admission now resolved, IV fluids at 100 cc an hour Discussed with patient the need for EGD colonoscopy. Stool studies are pending which include C. difficile and pathogens, ova and parasites, guarding Plan Diet clear liquids today Consent for EGD colonoscopy in a.. [facility] this p.m. Stool studies pending but C. difficile negative Monitor diarrhea stools for any obvious bleeding Monitor labs Okay to continue IV fluids for now Further recommendations to follow Patient was seen per myself and Dr. Callaway, note was written on his behalf <Nataliia Llamas - Last Filed: 08/14/18 10:51> - Plan Patient was seen and examined, agree with above note, patient will need upper endoscopy and colonoscopy especially that the C. difficile was negative, further plan depends on the findings and the final results of the stool studies <Akhil Callaway - Last Filed: 08/14/18 15:27>
--- NOTE | 2018-08-14 10:38 | P.PNIM ---
Subjective Interval history: Pt with some continued loose stools which occurs about 20 minutes after eating with some associated abd cramping and burning. Afebrile Denies any vomiting Physical Exam Vital signs: Last Vital Signs Temp 98.0 F 08/14/18 08:00 Pulse 73 08/14/18 08:00 Resp 17 08/14/18 08:00 BP 98/51 L 08/14/18 08:00 Pulse Ox 97 08/14/18 08:00 Narrative: GENERAL: This is a well-nourished, well-developed patient, in no apparent distress. CARDIOVASCULAR: Regular rate and rhythm RESPIRATORY: Clear to auscultation. Breath sounds equal bilaterally. GASTROINTESTINAL: Abdomen soft, non-tender, nondistended. Normal active bowel sounds MUSCULOSKELETAL: R BKA NEURO: Alert & Oriented x4 to person, place, time, situation. Moves all ext x4 Results Labs CBC & Chem 7: 08/14/18 06:14 08/14/18 06:16 Imaging Abdomen/Pelvis CTA 08/13/18 09:09 CONCLUSION: 1. CT angiogram demonstrates the mesenteric and pelvic vasculature to be widely patent with only minimal atherosclerotic disease. 2. Calcifications throughout the pancreas suggesting previous episodes of pancreatitis. No inflammatory changes are seen. 3. 1.4 cm right adrenal nodule. Please see above discussion.. Assessment and Plan Assessment (1) Diarrhea: Code(s): R19.7 - Diarrhea, unspecified Status: Acute (2) Abdominal pain: Code(s): R10.9 - Unspecified abdominal pain Status: Acute Plan This is a 67-year-old male patient with a past medical history which includes CLL, non-small cell adenocarcinoma of the lung, diabetes mellitus type 2, B12 deficiency, chronic pancreatitis, hypertension no longer on antihypertensives and bilateral PE. Patient was admitted to [facility] 03/18/[address] [facility] [place] discharge 03/24/2018 after drainage of pericardial effusion, cardiac tamponade and bilateral pleural effusion as well as bilateral PE at that time patient was diagnosed with non-small cell lung cancer and given 1 cycle of carboplatin and Taxol. Patient was then admitted to [facility] 03/28/18 discharge 04/19/2018. 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 . Patient reports he has been doing well was under the care of oncologist Dr. Escalante is being treated with Ketruda and Rituxan Q 3weeks. Until this past 08/07/2018 when patient began to have abdominal cramping/"acid sensation," followed by the need to have diarrhea or vomit. Patient reports the sensations are worsened by food and he is having liquid bowel movements as often as 2 times per hour. Patient also reports that his symptoms are getting a little better but if not yet gone away therefore he proceeded to the emergency department for further evaluation and treatment. Abd pain N/V/D - Normal saline at 100 cc/h - Stool for C. difficile and enteric pathogens are negative - Abdomen/Pelvis CTA 08/13/18 09:[address] angiogram demonstrates the mesenteric and pelvic vasculature to be widely patent with only minimal atherosclerotic disease. 2. Calcifications throughout the pancreas suggesting previous episodes of pancreatitis. No inflammatory changes are seen. 3. 1.4 cm right adrenal nodule. Please see above discussion. - Clear liquid diet - Zofran as needed - GI is consulted. - Supportive care - Recheck CBC BMP in a.m. CLL Non-small cell adenocarcinoma of the lung - Follows with Dr. Escalante outpatient - Patient at home takes Dilaudid 4 mg p.o. daily - Dilaudid 0.5 mg IV Q4H while patient unable to take p.o. Diabetes mellitus type 2 - Hold home Levemir 13 units SQ daily and Farxiga 10 mg PO daily - Accu-Cheks AC at bedtime with sliding scale insulin coverage Hypertension no longer on antihypertensives - Monitor Bilateral pulmonary emboli March 2018 - Hold patient's home Xarelto, may need GI procedure DVT prophylaxis with L SCD Hold patient's home Xarelto may need GI procedure
[2018-08-14] MEDS ORDERED: Sodium Chloride 0.9% 2 ML Flush PRN IV.FLUSH (11:25)
[2018-08-14] MEDS: Morphine Sulfate Inj 2 MG/ML Vial IV.PUSH PRN (11:39)
[2018-08-14] MEDS ORDERED: PEG 3350/E-Lyte Soln 4000 ML Bottle PO ONE (15:00)
[2018-08-14] MEDS: Pantoprazole Inj 40 MG Vial IV.CONT SCH (15:25)
[2018-08-14] MEDS: Sodium Chloride 0.9% 2 ML Flush BID IV.FLUSH SCH (21:16)
[2018-08-14] MEDS ORDERED: Chlorhexidine Gluconate 2% 1 Pack (2 Cloths) TOPICAL ONE (23:48)
[2018-08-15] MEDS: Insulin NovoLOG Aspart Correctional Sugar Inj SQ SCH ×4 (07:58→20:20)
[2018-08-15] MEDS: Sod Chloride 0.9% Inj 1,000 ML IV.CONT SCH ×2 (08:25→20:24)
[2018-08-15] MEDS: Sodium Chloride 0.9% 2 ML Flush BID IV.FLUSH SCH ×2 (08:28→20:20)
[2018-08-15] MEDS: Folic Acid 1 MG Tablet PO SCH (08:28)
--- NOTE | 2018-08-15 08:49 | P.PNIM ---
Subjective Interval history: Pt reports continued abd pain and states that the Morphine IV also gives him some abd cramping. He is going for EGD/colonoscopy this morning No new complaints Physical Exam Vital signs: Last Vital Signs Temp 98.3 F 08/15/18 00:00 Pulse 88 08/15/18 00:00 Resp 18 08/15/18 00:00 BP 111/58 L 08/15/18 00:00 Pulse Ox 95 08/15/18 00:00 Narrative: GENERAL: This is a well-nourished, well-developed patient, in no apparent distress. CARDIOVASCULAR: Regular rate and rhythm RESPIRATORY: Clear to auscultation. Breath sounds equal bilaterally. GASTROINTESTINAL: Abdomen soft, non-tender, nondistended. Normal active bowel sounds MUSCULOSKELETAL: R BKA NEURO: Alert & Oriented x4 to person, place, time, situation. Moves all ext x4 Results Labs CBC & Chem 7: 08/15/18 11:27 08/14/18 06:16 Assessment and Plan Plan This is a 67-year-old male patient with a past medical history which includes CLL, non-small cell adenocarcinoma of the lung, diabetes mellitus type 2, B12 deficiency, chronic pancreatitis, hypertension no longer on antihypertensives and bilateral PE. Patient was admitted to [facility] 03/18/18 transferred to [facility] discharge 03/24/2018 after drainage of pericardial effusion, cardiac tamponade and bilateral pleural effusion as well as bilateral PE at that time patient was diagnosed with non-small cell lung cancer and given 1 cycle of carboplatin and Taxol. Patient was then admitted to [facility] 03/28/18 discharge 04/19/2018. 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 . Patient reports he has been doing well was under the care of oncologist Dr. Escalante is being treated with Ketruda and Rituxan Q 3weeks. Until this past 08/07/2018 when patient began to have abdominal cramping/"acid sensation," followed by the need to have diarrhea or vomit. Patient reports the sensations are worsened by food and he is having liquid bowel movements as often as 2 times per hour. Patient also reports that his symptoms are getting a little better but if not yet gone away therefore he proceeded to the emergency department for further evaluation and treatment. Abd pain N/V/D - Normal saline at 100 cc/h - Stool for C. difficile and enteric pathogens are negative - Abdomen/Pelvis CTA 08/13/18 09:[address] angiogram demonstrates the mesenteric and pelvic vasculature to be widely patent with only minimal atherosclerotic disease. 2. Calcifications throughout the pancreas suggesting previous episodes of pancreatitis. No inflammatory changes are seen. 3. 1.4 cm right adrenal nodule. Please see above discussion. - Clear liquid diet - Zofran as needed - GI is following and pt is planned for EGD/colonsocopy today. - Supportive care - Recheck CBC BMP in a.m. CLL Non-small cell adenocarcinoma of the lung - Follows with Dr. Escalante outpatient - Patient at home takes Dilaudid 4 mg p.o. daily - Pt was given Dilaudid 0.5 mg IV Q4H but felt like he would get abd cramping when given the medication. THis was changed to Morphine IV but he felt the same sensation with the IV Morphine. Diabetes mellitus type 2 - Hold home Levemir 13 units SQ daily and Farxiga 10 mg PO daily - Accu-Cheks AC at bedtime with sliding scale insulin coverage Hypertension no longer on antihypertensives - Monitor Bilateral pulmonary emboli March 2018 - Xarelto was held for GI procedure DVT prophylaxis with L SCD Hold patient's home Xarelto may need GI procedure Attending Attestation Patient examined. Assessment and plan formulated with Joanie Mckeon PA-C. I agree with the above. c scope with terminal ileum and rectal ulcerations. bx pending. ?r/o chrons dz. ?viral ..?related to his keytruda f/u pending stool studies. advance diet and see how he tolerates it.
--- NOTE | 2018-08-15 09:28 | P.PCN ---
Date of procedure: 08/15/18 Procedure: THANK YOU FOR THE REFERRAL Indication; nausea, vomiting, diarrhea, abdominal pain Procedure Performed; upper endoscopy: Diagnostic Colonoscopy: With biopsy After informing the patient about procedure and possible complications consent was signed. history and physical were updated. Patient was taken to the procedure room and placed in position. Time out was completed. Adequate sedation was performed by anesthesia provider. Upper Endoscopy, the scope was placed in the mouth advanced under video guide to the second portion of the duodenum, then the scope was withdrawal to the stomach and retro-flexion was performed, the scope was withdrawal to the esophagus then out of the mouth without any immediate complication Colonoscopy, rectal exam was performed the scope was placed in the rectum advanced under video guide to the cecum which was identified by ileo-cecal valve and appendiceal orifice, then the scope withdrawal slowly with examination of the mucosa to the rectum and retro-flexion was performed, the scope was withdrawal without any immediate complication Findings; colonoscopy, prep good Terminal ileum : Multiple ulcers in the terminal ileum and ileocecal valve questionable infectious process versus Crohn disease biopsy was done Colon: Diverticulosis throughout the colon, some erythema was small ulcerations in the rectum biopsy was done otherwise normal exam Rectum: Moderate internal hemorrhoid The findings possibly related to Crohn disease or infectious process, we will wait for the biopsy result before any treatment Esophagus: Normal Stomach: Normal Duodenum: Normal Recommendations; 1- Supportive care 2- ok to transfer to recovery area then discharge per protocol 3-regular diet 4-Hemoccult on a yearly basis by primary care physician 5-colonoscopy depends on the final diagnosis 6- EGD as needed 7-follow-up biopsy 8-return to clinic in 1-2 weeks
--- NOTE | 2018-08-15 09:30 | P.PNGI ---
Subjective Interval history: Patient laying in bed, seems to be more comfortable, less abdominal pain and nausea, his white count improved significantly since yesterday Physical Exam Vital signs: Vital Signs 08/14/18 12:00 08/14/18 16:00 08/14/18 20:00 Temperature 97.9 F 97.8 F 97.9 F Pulse Rate 75 71 74 Respiratory Rate 17 17 18 Blood Pressure 100/57 L 107/61 117/58 L Pulse Oximetry 99 99 98 08/15/18 00:00 Temperature 98.3 F Pulse Rate 88 Respiratory Rate 18 Blood Pressure 111/58 L Pulse Oximetry 95 Intake & Output 08/14/18 08/15/18 08/15/18 18:59 06:59 18:59 Intake Total 1959 / 1959 1000 / 1000 1000 / 1000 Balance 1959 1000 / 1000 1000 / 1000 Weight 64.9 kg Intake: IV 1000 / 1000 1000 / 1000 1000 / 1000 NS Inj 1,000 ML @ 100 mls/hr IV 1000 / 1000 1000 / 1000 1000 / 1000 .CONT .Q10H ROMERO Rx#:[id number] Oral 960 / 960 Other: # Voids 3 2 Date of Last Bowel Movement 08/14/18 # Bowel Movements 2 - Constitutional no acute distress - Routine HEENT Exam Head: Present: normocephalic, atraumatic Eye: Present: EOMI, PERRL ENT: Present: mucous membranes moist - Routine Neck Exam Present: supple, full ROM - Routine Respiratory Exam Present: CTA bilaterally - Routine Cardiovascular Exam Present: RRR, S1, S2 - Routine Abdominal Exam Present: soft, normoactive bowel sounds Comments: Mild tenderness in the lower abdomen and discomfort - Routine Extremities Exam Present: full ROM Results - Labs CBC & Chem 7: 08/14/18 06:14 08/14/18 06:16 Laboratory Results - last 24 hr 08/14/18 08/14/18 08/14/18 11:38 16:36 21:15 POC Glucose 223 H 172 H 108 08/15/18 07:48 POC Glucose 122 H Assessment and Plan - Plan Patient was seen and examined, patient has diarrhea, he had a colonoscopy today , this could be infectious process versus Crohn disease, currently has less abdominal pain and his white count improved Findings; colonoscopy, prep good Terminal ileum : Multiple ulcers in the terminal ileum and ileocecal valve questionable infectious process versus Crohn disease biopsy was done Colon: Diverticulosis throughout the colon, some erythema was small ulcerations in the rectum biopsy was done otherwise normal exam Rectum: Moderate internal hemorrhoid The findings possibly related to Crohn disease or infectious process, we will wait for the biopsy result before any treatment Esophagus: Normal Stomach: Normal Duodenum: Normal Recommendations; 1- Supportive care 2- ok to transfer to recovery area then discharge per protocol 3-regular diet 4-Hemoccult on a yearly basis by primary care physician 5-colonoscopy depends on the final diagnosis 6- EGD as needed 7-follow-up biopsy 8-return to clinic in 1-2 weeks
--- NOTE | 2018-08-15 10:40 | P.PCN ---
Date of procedure: 08/15/18 Procedure: THANK YOU FOR THE REFERRAL Indication; rectal mass Procedure Performed; Colonoscopy with After informing the patient about procedure and possible complications consent was signed. history and physical were updated. Patient was taken to the procedure room and placed in position. Time out was completed. Adequate sedation was performed by anesthesia provider. Colonoscopy, rectal exam was performed the scope was placed in the rectum advanced under video guide to bed transfer colon The procedure was stopped because of the amount of stool in the colon, then the scope withdrawal slowly with examination of the mucosa to the rectum and retro-flexion was performed, the scope was withdrawal without any immediate complication Findings; Colon poor prep, diverticular disease, the examination was only to the mid transfer: Rectum 3-4 cm mass in the rectum consistent with cancer biopsy was done Recommendations; 1- Supportive care 2- ok to transfer to recovery area then discharge per protocol 3- colonoscopy with longer prep in few weeks 0-qrpa-jcqod diet 5-Hemoccult on a yearly basis by primary care physician 6-oncology consult 7-colorectal surgery consult 8-follow-up biopsy
[2018-08-15] MEDS: Pantoprazole Inj 40 MG Vial IV.CONT SCH (12:24)
[2018-08-15 12:59] LABS: Baso % (Auto) 0.2 % (0.0-2.0); Eos # (Auto) 0.1 th/mm3 (0.0-0.4); Eos % (Auto) 0.8 % (0.0-4.0); Hematocrit 31.4 % (39.0-51.0); Lymph # (Auto) 0.9 th/mm3 (1.0-4.8); Lymph % (Auto) 10.8 % (9.0-44.0); Mean Corpuscular Hemoglobin 32.8 pg (27.0-34.0); Mean Corpuscular Volume 93.7 fL (80.0-100.0); Mean Platelet Volume 6.7 fL (7.0-11.0); Mono # (Auto) 0.8 th/mm3 (0.0-0.9); Mono % (Auto) 9.4 % (0.0-8.0); Neut # (Auto) 6.6 th/mm3 (1.8-7.7); Neut % (Auto) 78.8 % (16.0-70.0); Platelet Count 440 th/mm3 (150-450); Red Blood Count 3.36 mil/mm3 (4.50-5.90); Red Cell Distribution Width 13.2 % (11.6-17.2); White Blood Count 8.4 th/mm3 (4.0-11.0)
[2018-08-15 13:08] LABS: Anion Gap 11 meq/L (5-15); Blood Urea Nitrogen 4 mg/dL (7-18); Calcium 8.1 mg/dL (8.5-10.1); Carbon Dioxide 22.7 meq/L (21.0-32.0); Chloride 104 meq/L (98-107); Glomerular Filtration Rate Greater Than 89 mL/min (>89); Glucose,Random 132 mg/dL (74-106); Potassium 3.5 meq/L (3.5-5.1); Sodium 138 meq/L (136-145)
[2018-08-15 13:56] LABS: Eosinophils 1 % (0-4); Lymphocytes 14 % (9-44); Monocytes 9 % (0-8); Myelocytes 1 % (0-0)
[2018-08-15 13:57] LABS: Platelet Estimate Normal (Normal); Platelet Morphology Normal (Normal); RBC Morphology Normal (Normal)
--- NOTE | 2018-08-15 14:35 | ECG ---
Date Performed: 08/14/2018 Time Performed: 14:24:04 PTAGE: 67 years EKG: Sinus rhythm NORMAL ECG NO PREVIOUS TRACING DOCTOR: Zeeshan Greene Interpretating Date/Time 08/15/2018 14:28:43
[2018-08-15] MEDS: Morphine Sulfate Inj 2 MG/ML Vial IV.PUSH PRN (20:21)
[2018-08-15] MEDS ORDERED: Rivaroxaban 20 MG Tablet PO SCH (21:00)
[2018-08-16] MEDS: Sod Chloride 0.9% Inj 1,000 ML IV.CONT SCH ×3 (06:24→08:29)
[2018-08-16] MEDS: Insulin NovoLOG Aspart Correctional Sugar Inj SQ SCH (08:25)
[2018-08-16] MEDS: Sodium Chloride 0.9% 2 ML Flush BID IV.FLUSH SCH (08:25)
[2018-08-16] MEDS: Folic Acid 1 MG Tablet PO SCH (08:25)
[2018-08-16 08:53] LABS: Baso # (Auto) 0.1 th/mm3 (0.0-0.2); Baso % (Auto) 0.4 % (0.0-2.0); Eos # (Auto) 0.1 th/mm3 (0.0-0.4); Eos % (Auto) 0.6 % (0.0-4.0); Hematocrit 31.8 % (39.0-51.0); Lymph # (Auto) 0.9 th/mm3 (1.0-4.8); Lymph % (Auto) 6.8 % (9.0-44.0); Mean Corpuscular HGB Conc 34.6 % (32.0-36.0); Mean Corpuscular Hemoglobin 32.4 pg (27.0-34.0); Mean Corpuscular Volume 93.7 fL (80.0-100.0); Mean Platelet Volume 6.9 fL (7.0-11.0); Mono # (Auto) 1.4 th/mm3 (0.0-0.9); Mono % (Auto) 10.1 % (0.0-8.0); Neut # (Auto) 11.3 th/mm3 (1.8-7.7); Neut % (Auto) 82.1 % (16.0-70.0); Platelet Count 454 th/mm3 (150-450); Red Cell Distribution Width 13.6 % (11.6-17.2); White Blood Count 13.7 th/mm3 (4.0-11.0)
[2018-08-16 08:54] LABS: Anion Gap 9 meq/L (5-15); Blood Urea Nitrogen 3 mg/dL (7-18); Calcium 8.1 mg/dL (8.5-10.1); Carbon Dioxide 23.5 meq/L (21.0-32.0); Chloride 105 meq/L (98-107); Glomerular Filtration Rate Greater Than 89 mL/min (>89); Glucose,Random 158 mg/dL (74-106); Sodium 137 meq/L (136-145)
[2018-08-16 08:59] LABS: Potassium 5.3 meq/L (3.5-5.1)
--- NOTE | 2018-08-16 12:53 | P.DS ---
DS: Providers Date of admission: 08/13/18 14:20 Primary care physician: Ravi Enriquez MD Attending physician on admission: Dane Felix Consults: 08/13/18 19:13 Consult to Gastroenterology Routine Consulting Provider: Akhil Callaway Reason for Consultation: persistent n/v/d and abdomen pain with meals Notified:: Service Spoke with:: shaheed Date Notified:: 08/13/18 Time Notified:: 19:38 Ordering Provider: FAY Attending physician on discharge: Dane Felix Anticipated date of discharge: 08/16/18 DS: Summary Hospital Course: This is a 67-year-old male patient with a past medical history which includes CLL, non-small cell adenocarcinoma of the lung, diabetes mellitus type 2, B12 deficiency, chronic pancreatitis, hypertension no longer on antihypertensives and bilateral PE. Patient was admitted to [facility] 03/18/18 transferred to [facility] discharge 03/24/2018 after drainage of pericardial effusion, cardiac tamponade and bilateral pleural effusion as well as bilateral PE at that time patient was diagnosed with non-small cell lung cancer and given 1 cycle of carboplatin and Taxol. Patient was then admitted to [facility] 03/28/18 discharge 04/19/2018. 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 Patient reports he has been doing well was under the care of oncologist Dr. Escalante is being treated with Ketruda and Rituxan Q 3weeks. Until this past 08/07/2018 when patient began to have abdominal cramping/"acid sensation," followed by the need to have diarrhea or vomit. Patient reports the sensations are worsened by food and he is having liquid bowel movements as often as 2 times per hour. Patient also reports that his symptoms are getting a little better but if not yet gone away therefore he proceeded to the emergency department for further evaluation and treatment. Abd pain N/V/D - Normal saline at 100 cc/h - Stool for C. difficile and enteric pathogens are negative - Abdomen/Pelvis CTA 08/13/18 09:[address] angiogram demonstrates the mesenteric and pelvic vasculature to be widely patent with only minimal atherosclerotic disease. 2. Calcifications throughout the pancreas suggesting previous episodes of pancreatitis. No inflammatory changes are seen. 3. 1.4 cm right adrenal nodule. Please see above discussion. -Pt tolerate diet advancement to soft diet - Zofran as needed - GI is following and pt is planned for EGD/colonsocopy today. - Supportive care - Recheck CBC BMP in a.m. CLL Non-small cell adenocarcinoma of the lung - Follows with Dr. Escalante outpatient - Patient at home takes Dilaudid 4 mg p.o. daily - Pt was given Dilaudid 0.5 mg IV Q4H but felt like he would get abd cramping when given the medication. THis was changed to Morphine IV but he felt the same sensation with the IV Morphine. Diabetes mellitus type 2 - Hold home Levemir 13 units SQ daily and Farxiga 10 mg PO daily - Accu-Cheks AC at bedtime with sliding scale insulin coverage Hypertension no longer on antihypertensives - Monitor Bilateral pulmonary emboli March 2018 - Xarelto was held for GI procedure Status at Discharge Functional status at discharge: independent ambulation Overall status at discharge: patient is progressing back to baseline Time Spent with Patient Total time spent providing and/or coordinating discharge services: Greater than 30 minutes DS: Data Pending studies at discharge: Pending at discharge 08/15/18 10:51 Surgical [PTH] Stat Labs on day of discharge: Labs from last 24 hours 08/16/18 08/16/18 08/16/18 08:09 06:04 06:04 WBC 13.7 H D RBC 3.40 L Hgb 11.0 L Hct 31.8 L MCV 93.7 MCH 32.4 MCHC 34.6 RDW 13.6 Plt Count 454 H MPV 6.9 L Prelim Diff (Auto) Neut % (Auto) 82.1 H Lymph % (Auto) 6.8 L [place] % (Auto) 10.1 H Eos % (Auto) 0.6 Baso % (Auto) 0.4 Neut # (Auto) 11.3 H Lymph # (Auto) 0.9 L [place] # (Auto) 1.4 H Eos # (Auto) 0.1 Baso # (Auto) 0.1 WBC Differential . Seg Neuts % (Manual) Band Neuts % (Manual) Lymphocytes % (Manual) Monocytes % (Manual) Eosinophils % (Manual) Myelocytes % (Man) Abs Neuts (Manual) Differential Comment Auto diff final Platelet Estimate Platelet Morphology RBC Morphology Hematology Comments Sodium 137 Potassium 5.3 H D Chloride 105 Carbon Dioxide 23.5 Anion Gap 9 BUN 3 L Creatinine 0.61 Estimated GFR Greater than 89 POC Glucose 164 H Random Glucose 158 H Calcium 8.1 L 08/15/18 08/15/18 08/15/18 20:14 17:04 11:27 WBC RBC Hgb Hct MCV MCH MCHC RDW Plt Count MPV Prelim Diff (Auto) Neut % (Auto) Lymph % (Auto) [place] % (Auto) Eos % (Auto) Baso % (Auto) Neut # (Auto) Lymph # (Auto) [place] # (Auto) Eos # (Auto) Baso # (Auto) WBC Differential Seg Neuts % (Manual) Band Neuts % (Manual) Lymphocytes % (Manual) Monocytes % (Manual) Eosinophils % (Manual) Myelocytes % (Man) Abs Neuts (Manual) Differential Comment Platelet Estimate Platelet Morphology RBC Morphology Hematology Comments Sodium 138 Potassium 3.5 D Chloride 104 Carbon Dioxide 22.7 Anion Gap 11 BUN 4 L Creatinine 0.58 L Estimated GFR Greater than 89 POC Glucose 256 H 198 H Random Glucose 132 H Calcium 8.1 L 08/15/18 11:27 WBC 8.4 RBC 3.36 L Hgb 11.0 L D Hct 31.4 L MCV 93.7 MCH 32.8 MCHC 35.0 RDW 13.2 Plt Count 440 D MPV 6.7 L Prelim Diff (Auto) Slide review pending Neut % (Auto) 78.8 H Lymph % (Auto) 10.8 [place] % (Auto) 9.4 H Eos % (Auto) 0.8 Baso % (Auto) 0.2 Neut # (Auto) 6.6 Lymph # (Auto) 0.9 L [place] # (Auto) 0.8 Eos # (Auto) 0.1 Baso # (Auto) 0.0 WBC Differential Manual diff final Seg Neuts % (Manual) 68 Band Neuts % (Manual) 7 H Lymphocytes % (Manual) 14 Monocytes % (Manual) 9 H Eosinophils % (Manual) 1 Myelocytes % (Man) 1 H Abs Neuts (Manual) 6.4 Differential Comment . Platelet Estimate Normal Platelet Morphology Normal RBC Morphology Normal Hematology Comments Sodium Potassium Chloride Carbon Dioxide Anion Gap BUN Creatinine Estimated GFR POC Glucose Random Glucose Calcium Impressions Abdomen/Pelvis CTA 08/13/18 09:09 CONCLUSION: 1. CT angiogram demonstrates the mesenteric and pelvic vasculature to be widely patent with only minimal atherosclerotic disease. 2. Calcifications throughout the pancreas suggesting previous episodes of pancreatitis. No inflammatory changes are seen. 3. 1.4 cm right adrenal nodule. Please see above discussion.. Discharge Plan Discharge Disposition Patient Disposition: Discharge Home Discharge Condition Condition: Stable Discharge Order Discharge Orders: Discharge Order (Routine); Ordered 08/16/18 Ordered By: Joanie Mckeon Discharge Details Anticipated Discharge Date: 08/16/18 Discharge Comment: Please followup with your PCP, Dr. Enriquez, in 1 week, call for that appt. Please followup with Dr. Callaway in 2 weeks, call for that appt. Please followup with your Oncologist, Dr. Escalante, in 1 week, call for that appt. Physicians Team ED Provider: Andre Orozco Primary Care Provider: Ravi Enriquez Attending Provider: Dane Felix Other Providers: Akhil Callaway Rxs /Orders / Referrals /Forms Prescriptions: Continue insulin detemir U-100 [Levemir U-100 Insulin] 100 unit/mL Solution 13 unit SUBCUT QPM RF: 0 dapagliflozin [Farxiga] 10 mg Tablet 10 mg PO DAILY RF: 0 folic acid 1 mg Tablet 1 mg PO DAILY RF: 0 hydromorphone [Dilaudid] 4 mg Tablet 4 mg PO DIRECTED PRN (Reason: Pain) RF: 0 rivaroxaban [Xarelto] 20 mg Tablet 20 mg PO DAILY RF: 0 Zofran ODT 4 mg capsule 4 mg PO Q8H PRN (Reason: Nausea) RF: 0 ondansetron HCl [Zofran] 8 mg Tablet 8 mg PO TID PRN (Reason: Nausea) RF: 0 omeprazole 40 mg Capsule,Delayed Release(Dr/Ec) 40 mg PO DAILY RF: 0 oxycodone-acetaminophen [Percocet] 10-325 mg Tablet 1 tab PO Q4H PRN (Reason: Pain) RF: 0 gabapentin 300 mg Capsule 300 mg PO TID PRN (Reason: nerve pain) RF: 0 Changed dicyclomine 20 mg Tablet 20 mg PO QID PRN (Reason: Abdominal Discomfort) Qty: 0 RF: 0 Referrals: Eyal Escalante [Other] - See Instructions Akhil Callaway MD [Physician] - See Instructions Ravi Enriquez MD [Primary Care Provider] - See Instructions Discharge Instructions Patient Printed Instructions: Acute Diarrhea (GEN), Acute Abdominal Pain (DC), Leukocytosis (DC), Colonoscopy (DC), Upper Endoscopy (DC) Status ED Status: Left Department Discharge Information Discharge Date/Time: 08/16/18 13:10
--- NOTE | 2018-08-17 10:39 | P.DS ---
DS: Providers Date of admission: 08/13/18 14:20 Primary care physician: Ravi Enriquez MD Consults: 08/13/18 19:13 Consult to Gastroenterology Routine Consulting Provider: Akhil Callaway Reason for Consultation: persistent n/v/d and abdomen pain with meals Notified:: Service Spoke with:: shaheed Date Notified:: 08/13/18 Time Notified:: 19:38 Ordering Provider: FAY DS: Summary Abd pain N/V/D - This is a 67-year-old male patient with a past medical history which includes CLL, non-small cell adenocarcinoma of the lung, diabetes mellitus type 2, B12 deficiency, chronic pancreatitis, hypertension no longer on antihypertensives and bilateral PE. Patient was admitted to [facility] 03/18/18 transferred to [facility] discharge 03/24/2018 after drainage of pericardial effusion, cardiac tamponade and bilateral pleural effusion as well as bilateral PE at that time patient was diagnosed with non-small cell lung cancer and given 1 cycle of carboplatin and Taxol. Patient was then admitted to [facility] 03/28/18 discharge 04/19/2018. 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 Patient reports he has been doing well was under the care of oncologist Dr. Escalante is being treated with Ketruda and Rituxan Q 3weeks. Until this past 08/07/2018 when patient began to have abdominal cramping/"acid sensation," followed by the need to have diarrhea or vomit. Patient reports the sensations are worsened by food and he is having liquid bowel movements as often as 2 times per hour. Patient also reports that his symptoms are getting a little better but if not yet gone away therefore he proceeded to the emergency department for further evaluation and treatment. - Stool for C. difficile and enteric pathogens are negative - Abdomen/Pelvis CTA 08/13/[address] angiogram demonstrates the mesenteric and pelvic vasculature to be widely patent with only minimal atherosclerotic disease. 2. Calcifications throughout the pancreas suggesting previous episodes of pancreatitis. No inflammatory changes are seen. 3. 1.4 cm right adrenal nodule. Please see above discussion. - Pt underwent evaluation with EGD/colonoscopy on 08/15/18 --> Normal EGD, multiple ulcers in the terminal ileum and ileocecal valve questionable infectious process versus Crohn disease, diverticulosis throughout the colon, some erythema was small ulcerations in the rectum biopsy was done, and moderate internal hemorrhoid - There was concern that the findings may possibly related to Crohn disease or infectious process - Pathology was pending at the time of discharge. - Pt tolerated diet advancement to soft diet - He will need to followup with GI in 1-2 weeks for further recommendations. - Pt will need to followup with his PCP, Dr. Enriquez, in 1 week as well. CLL Non-small cell adenocarcinoma of the lung - Follows with Dr. Escalante outpatient. Patient at home takes Dilaudid 4 mg p.o. daily. Pt will be continued on his home regimen at discharge. He will need to followup with his Oncologist, Dr. Escalante, in 1-2 weeks to determine about when to continue his chemo treatment. Diabetes mellitus type 2 - Pt will be resumed on his home doses of Levemir 13 units SQ daily and Farxiga 10 mg PO daily Hypertension no longer on antihypertensives - Monitor at home Bilateral pulmonary emboli March 2018 - Xarelto was held for GI procedure Status at Discharge Functional status at discharge: independent ambulation Overall status at discharge: patient is progressing back to baseline Time Spent with Patient Total time spent providing and/or coordinating discharge services: Greater than 30 minutes Exam Narrative Exam Narrative: GENERAL: This is a well-nourished, well-developed patient, in no apparent distress. CARDIOVASCULAR: Regular rate and rhythm RESPIRATORY: Clear to auscultation. Breath sounds equal bilaterally. GASTROINTESTINAL: Abdomen soft, non-tender, nondistended. Normal active bowel sounds MUSCULOSKELETAL: R BKA NEURO: Alert & Oriented x4 to person, place, time, situation. Moves all ext x4 DS: Data Completed studies during hospitalization [Text1]: Pending at discharge 08/15/18 10:51 Surgical [PTH] Stat Impressions Abdomen/Pelvis CTA 08/13/18 09:09 CONCLUSION: 1. CT angiogram demonstrates the mesenteric and pelvic vasculature to be widely patent with only minimal atherosclerotic disease. 2. Calcifications throughout the pancreas suggesting previous episodes of pancreatitis. No inflammatory changes are seen. 3. 1.4 cm right adrenal nodule. Please see above discussion.. Discharge Plan Discharge Disposition Patient Disposition: Discharge Home Discharge Condition Condition: Stable Discharge Order Discharge Orders: Discharge Order (Routine); Ordered 08/16/18 Ordered By: Joanie Mckeon Discharge Details Anticipated Discharge Date: 08/16/18 Discharge Comment: Please followup with your PCP, Dr. Enriquez, in 1 week, call for that appt. Please followup with Dr. Callaway in 2 weeks, call for that appt. Please followup with your Oncologist, Dr. Escalante, in 1 week, call for that appt. Physicians Team ED Provider: Andre Orozco Primary Care Provider: Ravi Enriquez Attending Provider: Dane Felix Other Providers: Akhil Callaway Rxs /Orders / Referrals /Forms Prescriptions: Continue insulin detemir U-100 [Levemir U-100 Insulin] 100 unit/mL Solution 13 unit SUBCUT QPM RF: 0 dapagliflozin [Farxiga] 10 mg Tablet 10 mg PO DAILY RF: 0 folic acid 1 mg Tablet 1 mg PO DAILY RF: 0 hydromorphone [Dilaudid] 4 mg Tablet 4 mg PO DIRECTED PRN (Reason: Pain) RF: 0 rivaroxaban [Xarelto] 20 mg Tablet 20 mg PO DAILY RF: 0 Zofran ODT 4 mg capsule 4 mg PO Q8H PRN (Reason: Nausea) RF: 0 ondansetron HCl [Zofran] 8 mg Tablet 8 mg PO TID PRN (Reason: Nausea) RF: 0 omeprazole 40 mg Capsule,Delayed Release(Dr/Ec) 40 mg PO DAILY RF: 0 oxycodone-acetaminophen [Percocet] 10-325 mg Tablet 1 tab PO Q4H PRN (Reason: Pain) RF: 0 gabapentin 300 mg Capsule 300 mg PO TID PRN (Reason: nerve pain) RF: 0 Changed dicyclomine 20 mg Tablet 20 mg PO QID PRN (Reason: Abdominal Discomfort) Qty: 0 RF: 0 Referrals: Eyal Escalante [Other] - See Instructions Akhil Callaway MD [Physician] - See Instructions Ravi Enriquez MD [Primary Care Provider] - See Instructions Discharge Instructions Patient Printed Instructions: Acute Diarrhea (GEN), Acute Abdominal Pain (DC), Leukocytosis (DC), Colonoscopy (DC), Upper Endoscopy (DC) Status ED Status: Left Department Discharge Information Discharge Date/Time: 08/16/18 13:10
== END 2018-08-16 13:10 | disposition home or self-care (01) ==
LOC: NEPE 08:35 → NEDA 08:35 → N07 18:32
PROVIDERS: ADMIT Hospitalist; ATTEND Hospitalist
PROC: PANENDO (2018-08-15 08:51)
PROC: COLONOS (2018-08-15 08:51)
DX: Z89.511 Acquired absence of right leg below knee; R63.4 Abnormal weight loss; E27.8 Other specified disorders of adrenal gland; K62.6 Ulcer of anus and rectum; R10.13 Epigastric pain; E11.9 Type 2 diabetes mellitus without complications; C34.90 Malignant neoplasm of unspecified part of unspecified bronchus or lung; R11.2 Nausea with vomiting, unspecified; K57.30 Diverticulosis of large intestine without perforation or abscess without bleeding; Z79.01 Long term (current) use of anticoagulants; Z86.711 Personal history of pulmonary embolism; Z90.49 Acquired absence of other specified parts of digestive tract; R19.7 Diarrhea, unspecified; Z88.8 Allergy status to other drugs, medicaments and biological substances; K86.1 Other chronic pancreatitis; Z87.891 Personal history of nicotine dependence; E87.2 Acidosis; I10 Essential (primary) hypertension; K64.8 Other hemorrhoids; Z88.1 Allergy status to other antibiotic agents; Z79.4 Long term (current) use of insulin; Z68.1 Body mass index [BMI] 19.9 or less, adult; C91.10 Chronic lymphocytic leukemia of B-cell type not having achieved remission; Z92.21 Personal history of antineoplastic chemotherapy